=== PATIENT | male | born 1945 | race Caucasian/White ===

== ENCOUNTER 2021-02-19 15:47 | Emergency (ER) | payer OTHER ==
[2021-02-19 16:50] LABS: ANION GAP 14.2 mmol/L (5-15)
--- NOTE | 2021-02-19 17:04 | EDM.PDOC ---
ED HPI GENERAL MEDICAL PROBLEM - General Chief Complaint: Respiratory Problem Time Seen by Provider: 02/19/21 16:00 Source of Information: Reports: Patient, Family, RN, RN Notes Reviewed History Limitations: Reports: No Limitations - History of Present Illness INITIAL COMMENTS - FREE TEXT/NARRATIVE: Patient is a 75-year-old male who presents to ER with complaint of increased shortness of breath and feeling that his heart is racing. Patient states he has had shortness of breath for the past year and a half but it has been worse over the past 2 to 3 days. States he cannot lie flat, complains of orthopnea. During the middle of the night last night he did have an episode where he felt very short of breath and felt his heart rate was high, patient took his blood pressure and heart rate was shown to be in the 150s. Patient denies any chest pains. Admits to some lightheaded feelings and feeling of unbalanced. Oxygen saturation is 98% on room air, patient is not requiring oxygen supplementation at this time. Denies any recent illness, nausea, vomiting, diarrhea, fever, chills. Patient states he has felt that maybe he is having a cold and began taking Mucinex DM, has been taking that for the past few days. He started this when he began feeling increased shortness of breath. Patient states he had throat cancer approximately 20 years ago. States he quit smoking at that time. Patient and state he did have a scan done at the [facility] and there was a nodule noted on one of the lungs. He was to present back to the [facility] in 2 days for further follow-up regarding the nodule of the lung. Patient is in known atrial fib, currently takes Eliquis as well as metoprolol. Onset: Other Onset Date: 02/16/21 - Related Data Allergies Allergy/AdvReac Type Severity Reaction Status Date / Time No Known Allergies Allergy Verified 02/19/21 16:11 Home Meds: Home Meds Apixaban [Eliquis] 5 mg PO BID 02/19/21 [History] Biotin 10,000 mcg PO DAILY 02/19/21 [History] Famotidine 20 mg PO DAILY 02/19/21 [History] Gabapentin [Neurontin] 300 mg PO BID 02/19/21 [History] Metoprolol Tartrate 100 mg PO BID 02/19/21 [History] Multivitamin 1 tab PO DAILY 02/19/21 [History] Pantoprazole Sodium [Protonix] 20 mg PO BID 02/19/21 [History] Potassium Gluconate [Potassium] 595 mg PO DAILY 02/19/21 [History] Tamsulosin HCl [Flomax] 0.4 mg PO BEDTIME 02/19/21 [History] Past Medical History Cardiovascular History: Reports: Afib, Hypertension Gastrointestinal History: Reports: GERD Genitourinary History: Reports: BPH Musculoskeletal History: Reports: Neck Pain, Chronic - Past Surgical History Musculoskeletal Surgical History: Reports: Hip Replacement Social & Family History - Family History Family Medical History: No Pertinent Family History - Tobacco Use Tobacco Use Status *Q: Never Tobacco User - Alcohol Use Days Per Week of Alcohol Use: 1 Number of Drinks Per Day: 7 Total Drinks Per Week: 7 - Recreational Drug Use Recreational Drug Use: No ED ROS GENERAL - Review of Systems Review Of Systems: Comprehensive ROS is negative, except as noted in HPI. ED EXAM, GENERAL - Physical Exam Exam: See Below Exam Limited By: No Limitations General Appearance: Alert, WD/WN, No Apparent Distress Eye Exam: Bilateral Eye: EOMI, Normal Inspection Ears: Normal External Exam, Hearing Grossly Normal Nose: Normal Inspection Throat/Mouth: Normal Inspection, No Airway Compromise, Other (Voice raspy from previous surgery for throat cancer, affecting vocal cords) Head: Atraumatic, Normocephalic Neck: Normal Inspection, Supple, Non-Tender, Full Range of Motion Respiratory/Chest: No Respiratory Distress, No Accessory Muscle Use, Chest Non- Tender, Decreased Breath Sounds, Crackles (bases bilaterally) Cardiovascular: Normal Peripheral Pulses, No Edema, No Gallop, No JVD, No Murmur, No Rub, Tachycardia, Irregularly Irregular Peripheral Pulses: 2+: Radial (L), Radial (R) GI/Abdominal: Normal Bowel Sounds, Soft, Non-Tender (Male) Exam: Deferred Rectal (Males) Exam: Deferred Back Exam: Normal Inspection, Full Range of Motion, NT Extremities: Normal Inspection, Normal Range of Motion, Non-Tender, Normal Capillary Refill, No Pedal Edema Neurological: Alert, Oriented, CN II-XII Intact, Normal Cognition, Normal Gait, Normal Reflexes, No Motor/Sensory Deficits Psychiatric: Normal Affect, Normal Mood Skin Exam: Warm, Dry, Intact, Normal Color, No Rash Lymphatic: No Adenopathy #1 Interpretation EKG Date: 02/19/21 Time: 15:58 Rhythm: A-Fib Rate (Beats/Min): 97 QRS: Normal ST-T: Normal QT: Normal Comparison: NA - No Prior EKG Course - Vital Signs Last Recorded V/S: Last Vital Signs Temp 98.1 F 02/19/21 15:53 Pulse 78 02/19/21 19:16 Resp 16 02/19/21 19:16 BP 152/85 H 02/19/21 19:16 Pulse Ox 95 02/19/21 19:16 - Orders/Labs/Meds Orders: Active Orders 24 hr Category Date Time Status EKG Documentation Completion [RC] STAT Care 02/19/21 15:53 Active CORONAVIRUS COVID-19 RAPID [MOLEC] Stat Lab 02/19/21 19:44 Ordered Labs: Laboratory Tests 02/19/21 02/19/21 02/19/21 Range/Units 16:04 16:04 16:04 WBC 6.1 (4.0-10.0) x10^3/uL RBC 4.10 L (4.5-6.0) x10^6/uL Hgb 13.2 L (14.0-18.0) g/dL Hct 38.2 L (40.0-52.0) % MCV 93.2 H (78.0-93.0) fL MCH 32.2 H (26.0-32.0) pg MCHC 34.6 (32.0-36.0) g/dL RDW Coeff of Mikhail 14.2 (10.0-15.0) % Plt Count 147 (130-400) x10^3/uL Neut % (Auto) 69.1 (50.0-80.0) % Lymph % (Auto) 19.7 L (25.0-50.0) % [place] % (Auto) 8.5 (2.0-11.0) % Eos % (Auto) 2.0 (0.0-4.0) % Baso % (Auto) 0.7 (0.2-1.2) % PT 11.6 (9.9-12.5) SEC INR 1.0 L (2.0-3.5) D-Dimer, Quantitative (<=0.58) mg/LFEU Sodium 137 (136-145) mmol/L Potassium 4.2 (3.5-5.1) mmol/L Chloride 102 (98-107) mmol/L Carbon Dioxide 25 (21-32) mmol/L Anion Gap 14.2 (5-15) mmol/L BUN 18 (7-18) mg/dL Creatinine 1.3 (0.70-1.30) mg/dL Est Cr Clr Drug Dosing 58.84 mL/min Estimated GFR (MDRD) 54 Glucose 104 H (70-99) mg/dL Calcium 8.7 (8.5-10.1) mg/dL Corrected Calcium 8.6 (8.5-10.1) mg/dL Total Bilirubin 3.0 H (0.2-1.0) mg/dL AST 19 (15-37) U/L ALT 24 (16-63) U/L Alkaline Phosphatase 54 (46-116) U/L Troponin I High Sens 10 (<=76) ng/L C-Reactive Protein 0.6 (<=0.9) mg/dL NT-Pro-B Natriuret Pep 2044 H (<=125) pg/mL Total Protein 7.8 (6.4-8.2) g/dL Albumin 4.1 (3.4-5.0) g/dL Globulin 3.7 Albumin/Globulin Ratio 1.11 Urine Color (YELLOW) Urine Appearance (CLEAR) Urine pH (5.0-8.0) Ur Specific [place] Urine Protein (NEGATIVE) mg/dL Urine Glucose (UA) (NEGATIVE) mg/dL Urine Ketones (NEGATIVE) mg/dL Urine Occult Blood (NEGATIVE) Urine Nitrite (NEGATIVE) Urine Bilirubin (NEGATIVE) Urine Urobilinogen (0.2) EU/dL Ur Leukocyte Esterase (NEGATIVE) 02/19/21 02/19/21 Range/Units 16:04 18:13 WBC (4.0-10.0) x10^3/uL RBC (4.5-6.0) x10^6/uL Hgb (14.0-18.0) g/dL Hct (40.0-52.0) % MCV (78.0-93.0) fL MCH (26.0-32.0) pg MCHC (32.0-36.0) g/dL RDW Coeff of Mikhail (10.0-15.0) % Plt Count (130-400) x10^3/uL Neut % (Auto) (50.0-80.0) % Lymph % (Auto) (25.0-50.0) % [place] % (Auto) (2.0-11.0) % Eos % (Auto) (0.0-4.0) % Baso % (Auto) (0.2-1.2) % PT (9.9-12.5) SEC INR (2.0-3.5) D-Dimer, Quantitative 0.56 (<=0.58) mg/LFEU Sodium (136-145) mmol/L Potassium (3.5-5.1) mmol/L Chloride (98-107) mmol/L Carbon Dioxide (21-32) mmol/L Anion Gap (5-15) mmol/L BUN (7-18) mg/dL Creatinine (0.70-1.30) mg/dL Est Cr Clr Drug Dosing mL/min Estimated GFR (MDRD) Glucose (70-99) mg/dL Calcium (8.5-10.1) mg/dL Corrected Calcium (8.5-10.1) mg/dL Total Bilirubin (0.2-1.0) mg/dL AST (15-37) U/L ALT (16-63) U/L Alkaline Phosphatase (46-116) U/L Troponin I High Sens (<=76) ng/L C-Reactive Protein (<=0.9) mg/dL NT-Pro-B Natriuret Pep (<=125) pg/mL Total Protein (6.4-8.2) g/dL Albumin (3.4-5.0) g/dL Globulin Albumin/Globulin Ratio Urine Color Yellow (YELLOW) Urine Appearance Clear (CLEAR) Urine pH 5.5 (5.0-8.0) Ur Specific [place] 1.015 Urine Protein Negative (NEGATIVE) mg/dL Urine Glucose (UA) Negative (NEGATIVE) mg/dL Urine Ketones Negative (NEGATIVE) mg/dL Urine Occult Blood Negative (NEGATIVE) Urine Nitrite Negative (NEGATIVE) Urine Bilirubin Negative (NEGATIVE) Urine Urobilinogen 0.2 (0.2) EU/dL Ur Leukocyte Esterase Negative (NEGATIVE) Meds: Medications Discontinued Medications Generic Name Dose Route Start Last Admin Trade Name Freq PRN Reason Stop Dose Admin Furosemide 40 mg 02/19/21 17:40 02/19/21 17:50 Furosemide 40 Mg/4 Ml Vial IV 02/19/21 17:41 40 mg ONETIME ONE Administration Iopamidol 100 ml 02/19/21 19:20 02/19/21 19:20 Iopamidol 612 Mg/Ml 100 Ml Bottle IVPUSH 02/19/21 19:21 100 ml ONETIME ONE Administration - Radiology Interpretation Free Text/Narrative:: Chest x-ray: Lungs are clear, no pneumonia or edema CT of Chest with contrast: There are no pulmonary emboli There is no mediastinal mass There are subcentimeter mediastinal lymph nodes There is no prominent parenchymal infiltrate or pleural effusion There is no adrenal mass See radiologist report - Re-Assessments/Exams Free Text/Narrative Re-Assessment/Exam: 02/19/21 19:14 Discussed patient case with Dr. Mulligan who requested a chest CT be performed and then to call him back. 02/19/21 19:55 Discussed patient case with Dr. Adame who agreed to accept the patient for transfer. Departure - Departure Time of Disposition: 19:52 Disposition: DC/Tfer to [facility] 02 Condition: Fair Clinical Impression: SOB (shortness of breath), History of throat cancer CHF (congestive heart failure) Qualifiers: Heart failure type: unspecified Heart failure chronicity: acute Qualified Code(s): I50.9 - Heart failure, unspecified Atrial fibrillation Qualifiers: Atrial fibrillation type: unspecified Qualified Code(s): I48.91 - Unspecified atrial fibrillation - Discharge Information *PRESCRIPTION DRUG MONITORING PROGRAM REVIEWED*: No *COPY OF PRESCRIPTION DRUG MONITORING REPORT IN PATIENT EDEN: No Referrals: Uziel Kim MD [Primary Care Provider] - Forms: ED Department Discharge, [facility] Sepsis Event Note (ED) - Evaluation Sepsis Screening Result: No Definite Risk - Focused Exam Vital Signs: Vital Signs Temp Pulse Resp BP Pulse Ox 02/19/21 19:16 78 16 152/85 H 95 02/19/21 19:14 82 16 146/84 H 95 02/19/21 17:05 82 16 142/82 H 96 02/19/21 15:53 98.1 F 100 18 128/90 96 - My Orders Last 24 Hours: My Active Orders 02/19/21 15:53 EKG Documentation Completion [RC] STAT 02/19/21 19:44 CORONAVIRUS COVID-19 RAPID [MOLEC] Stat - Assessment/Plan Last 24 Hours: My Active Orders 02/19/21 15:53 EKG Documentation Completion [RC] STAT 02/19/21 19:44 CORONAVIRUS COVID-19 RAPID [MOLEC] Stat
--- NOTE | 2021-02-19 17:11 | CR ---
[id number] RAD/RAD Chest PA or AP 1V EXAM: SINGLE VIEW CHEST. INDICATION: CHEST PAIN COMPARISON: CORRELATION IS MADE WITH AUGUST 03, 2008 FINDINGS: The lungs are clear The cardiomediastinal contour is stable IMPRESSION: NO PNEUMONIA OR EDEMA Sin Walls MD 02/19/21 [id number] Thank you for allowing us to participate in the care of your patient.
[2021-02-19] MEDS ORDERED: Furosemide 40 MG/4 ML VIAL IV ONE (17:40)
[2021-02-19] MEDS ORDERED: Iopamidol 612 MG/ML 100 ML Bottle IVPUSH ONE (19:20)
--- NOTE | 2021-02-19 19:30 | CT ---
[id number] CT/CT Chest W IV Exam: CT Chest W IV Clinical Data: SHORTNESS OF BREATH COMPARISON: CORRELATION IS MADE WITH THE CURRENT PLAIN FILM FINDINGS: There are no pulmonary emboli. There is no mediastinal mass There are subcentimeter mediastinal lymph nodes There is no prominent parenchymal infiltrate or pleural effusion. There is no adrenal mass. IMPRESSION: NO PULMONARY EMBOLI Sin Walls MD 02/19/21 2047 Thank you for allowing us to participate in the care of your patient.
[2021-02-19] MEDS ORDERED: LORazepam 1 MG Tab PO ONE (20:02)
== END 2021-02-19 20:35 | disposition short-term general hospital (02) ==
LOC: VM.ED 15:47
DX: I11.0 Hypertensive heart disease with heart failure (principal); I50.9 Heart failure, unspecified; I48.91 Unspecified atrial fibrillation; K21.9 Gastro-esophageal reflux disease without esophagitis; Z79.899 Other long term (current) drug therapy; Z79.01 Long term (current) use of anticoagulants; Z85.819 Personal history of malignant neoplasm of unspecified site of lip, oral cavity, and pharynx; Z20.822 Contact with and (suspected) exposure to COVID-19
CPT/HCPCS: 71045; 71260; 80053; 81003; 83880; 84484; 85025; 85379; 85610; 86140; 93005; 93010; 96374; 99284; 99285-25; A9270-GY; J1940; Q9967; U0002

== ENCOUNTER 2023-01-31 11:38 | Emergency (ER) | payer OTHER ==
[2023-01-31 12:25] LABS: APPEARANCE,URINE CLOUDY (CLEAR); BILIRUBIN,URINE SMALL (NEGATIVE); COLOR,URINE YELLOW (YELLOW); GLUCOSE,URINE NEGATIVE (NEGATIVE); KETONES,URINE NEGATIVE (NEGATIVE); LEUKOCYTE ESTERASE,URINE MODERATE (NEGATIVE); NITRITE,URINE NEGATIVE (NEGATIVE); OCCULT BLOOD,URINE MODERATE (NEGATIVE); PROTEIN,URINE 100 mg/dL (NEGATIVE)
[2023-01-31 12:38] LABS: AMORPHOUS SEDIMENT,URINE OCCASIONAL; BACTERIA,URINE FEW /HPF (NOT SEEN); HYALINE CASTS,URINE FEW; MUCUS,URINE MODERATE /LPF (NOT SEEN); RBC,URINE 40-50 /HPF (NOT SEEN); SQUAMOUS EPITHELIAL CELLS,UR RARE /HPF (NOT SEEN); WBC,URINE >100 /HPF (NOT SEEN)
== END 2023-01-31 13:10 | disposition home or self-care (01) ==
LOC: VM.ED 11:38
DX: N39.0 Urinary tract infection, site not specified (principal); I10 Essential (primary) hypertension; I48.91 Unspecified atrial fibrillation; Z87.891 Personal history of nicotine dependence
CPT/HCPCS: 81001; 87086; 87088; 99283; 99284

== ENCOUNTER 2023-02-13 14:26 | Emergency (ER) | payer OTHER ==
[2023-02-13 14:55] LABS: APPEARANCE,URINE CLOUDY (CLEAR); COLOR,URINE YELLOW (YELLOW)
[2023-02-13 14:56] LABS: BILIRUBIN,URINE SMALL (NEGATIVE); GLUCOSE,URINE NEGATIVE (NEGATIVE); KETONES,URINE NEGATIVE (NEGATIVE); OCCULT BLOOD,URINE MODERATE (NEGATIVE); PH,URINE 5.5 (5.0-8.0); PROTEIN,URINE >=300 mg/dL (NEGATIVE)
[2023-02-13 14:57] LABS: LEUKOCYTE ESTERASE,URINE LARGE (NEGATIVE); NITRITE,URINE POSITIVE (NEGATIVE)
[2023-02-13 14:58] LABS: BACTERIA,URINE FEW /HPF (NOT SEEN); MUCUS,URINE RARE /LPF (NOT SEEN); RBC,URINE >100 /HPF (NOT SEEN); WBC,URINE PACKED /HPF (NOT SEEN)
== END 2023-02-13 15:17 | disposition home or self-care (01) ==
LOC: VM.ED 14:26
DX: N39.0 Urinary tract infection, site not specified (principal); I48.91 Unspecified atrial fibrillation; I10 Essential (primary) hypertension
CPT/HCPCS: 81001; 87086; 87088; 87186; 99283; 99284